=== PATIENT | female | born 1980 | race Caucasian/White ===

== ENCOUNTER 2023-04-05 16:37 | Emergency (ER) | payer MEDICARE, MEDICAID ==
[~2023-04-05] VITALS: Ht 160 cm; Wt 82.6 kg
--- NOTE | 2023-04-05 16:55 | NUR ---
pt in restroom
[2023-04-05 17:04] VITALS: BP 162/101
--- NOTE | 2023-04-05 17:13 | NUR ---
pt ambulatory to [facility] steady gait
[2023-04-05] MEDS ORDERED: SUD30 PO (17:59)
[2023-04-05] MEDS ORDERED: PROM118S5 PO (17:59)
--- NOTE | 2023-04-05 18:30 | NUR ---
pt assessment completed by HUNTER rothman and matted for DC. No orders.
[2023-04-05 18:31] VITALS: BP 153/89
--- NOTE | 2023-04-05 18:31 | NUR ---
Patient discharged with v/s stable. Written and verbal after care instructions given and explained. Patient alert, oriented and verbalized understanding of instructions. Ambulatory with steady gait. All questions addressed prior to discharge. ID band removed. Patient advised to follow up with PMD. Rx of promethazine, sudafed given. Patient educated on indication of medication including possible reaction and side effects. Opportunity to ask questions provided and answered.
== END 2023-04-05 18:31 | disposition home or self-care (01) ==
LOC: MED 16:37
DX: J06.9 Acute upper respiratory infection, unspecified (principal); E11.65 Type 2 diabetes mellitus with hyperglycemia; I10 Essential (primary) hypertension; Z79.4 Long term (current) use of insulin; Z79.899 Other long term (current) drug therapy
CPT/HCPCS: 99283